=== PATIENT | male | born 1965 | race Caucasian/White ===

== ENCOUNTER 2017-03-07 08:28 | Emergency (ER) | payer MEDICARE, MEDICAID ==
[~2017-03-07] VITALS: Ht 182.9 cm; Wt 79.7 kg
[2017-03-07] MEDS ORDERED: LIDOcaine 1.5% w/epinephrine 1:200,000 5ml ampul IJ ONE (08:45)
[2017-03-07] MEDS ORDERED: TETanus/Pertussis (Acell)/Diphther VAC/PF (Tdap-Adult) 0.5ml syringe IM ONE (08:45)
[2017-03-07] MEDS ORDERED: CEPH500C5 PO (09:58)
[2017-03-07 10:14] VITALS: BP 163/90
== END 2017-03-07 10:16 | disposition home or self-care (01) ==
LOC: ER 08:29
DX: S01.81XA Laceration without foreign body of other part of head, initial encounter (principal); G40.909 Epilepsy, unspecified, not intractable, without status epilepticus; Z88.8 Allergy status to other drugs, medicaments and biological substances; X58.XXXA Exposure to other specified factors, initial encounter; Y93.89 Activity, other specified; Y92.89 Other specified places as the place of occurrence of the external cause; Y99.8 Other external cause status
CPT/HCPCS: 12013; 90471; 90715; 99284; A6449; J3490

== ENCOUNTER 2020-10-03 19:00 | Emergency (ER) | payer MEDICARE, MEDICAID ==
[~2020-10-03] VITALS: Ht 180.3 cm; Wt 80.0 kg
[2020-10-03 19:11] VITALS: BP 157/93
[2020-10-03] MEDS ORDERED: LIDOcaine 1% W/epiNEPHrine 1:200,000 10ml vial IJ ONE (19:25)
[2020-10-03] MEDS ORDERED: LIDOcaine 1% w/epiNEPHrine 1:200,000 30ml vial SQ ONE (19:45)
== END 2020-10-03 20:24 | disposition home or self-care (01) ==
LOC: ER 19:01
DX: S01.81XA Laceration without foreign body of other part of head, initial encounter (principal); Z86.69 Personal history of other diseases of the nervous system and sense organs; Z88.8 Allergy status to other drugs, medicaments and biological substances; W01.0XXA Fall on same level from slipping, tripping and stumbling without subsequent striking against object, initial encounter; Y93.89 Activity, other specified; Y92.89 Other specified places as the place of occurrence of the external cause; Y99.8 Other external cause status
CPT/HCPCS: 12011; 99282

== ENCOUNTER 2021-08-04 15:08 | Emergency (ER) | payer MEDICARE, MEDICAID ==
[~2021-08-04] VITALS: Ht 180.3 cm; Wt 72.7 kg
[2021-08-04 15:27] VITALS: BP 133/68
== END 2021-08-04 19:10 | disposition home or self-care (01) ==
LOC: ER 15:08
DX: S01.81XA Laceration without foreign body of other part of head, initial encounter (principal); Z86.69 Personal history of other diseases of the nervous system and sense organs; Z88.8 Allergy status to other drugs, medicaments and biological substances; W19.XXXA Unspecified fall, initial encounter; Y93.89 Activity, other specified; Y92.89 Other specified places as the place of occurrence of the external cause; Y99.8 Other external cause status
CPT/HCPCS: 12013; 70450; 99284

== ENCOUNTER 2022-02-20 13:26 | Emergency (ER) | payer MEDICARE, MEDICAID ==
[~2022-02-20] VITALS: Ht 177.8 cm; Wt 72.0 kg
[2022-02-20 13:27] VITALS: BP 169/94
[2022-02-20] MEDS ORDERED: magnesium citrate 296ml oral solution PO ONE (14:45)
[2022-02-20] MEDS ORDERED: scopolamine 1.5mg patch.TD72 (72-hour patch) TD ONE (14:45)
[2022-02-20 15:19] LABS: CLARITY,URINE CLEAR (Clear); COLOR,URINE YELLOW (Yellow); GLUCOSE, URINE NEGATIVE (Neg); KETONES,URINE NEGATIVE (Neg); LEUKOCYTE ESTERASE ,URINE NEGATIVE (Neg); NITRITES, URINE NEGATIVE (Neg); OCCULT BLOOD,URINE NEGATIVE (Neg); PROTEIN,URINE NEGATIVE (Neg); UROBILINOGEN,URINE 0.2 E.U/dL (0.2-1.0)
[2022-02-20 15:20] LABS: UA COLLECTION TYPE VOIDED
== END 2022-02-20 15:47 | disposition home or self-care (01) ==
LOC: ER 13:26
DX: N23 Unspecified renal colic (principal); Z88.8 Allergy status to other drugs, medicaments and biological substances
CPT/HCPCS: 81003; 99284

== ENCOUNTER 2022-04-03 21:41 | Emergency (ER) | payer MEDICARE, MEDICAID ==
[~2022-04-03] VITALS: Ht 180.3 cm; Wt 72.7 kg
[2022-04-03 22:27] VITALS: BP 132/93
[2022-04-04] MEDS ORDERED: naproxen 500mg tablet PO ONE (01:00)
== END 2022-04-04 01:20 | disposition home or self-care (01) ==
LOC: ER 21:42
DX: S50.02XA Contusion of left elbow, initial encounter (principal); Z86.69 Personal history of other diseases of the nervous system and sense organs; Z88.8 Allergy status to other drugs, medicaments and biological substances; W06.XXXA Fall from bed, initial encounter; Y93.89 Activity, other specified; Y92.89 Other specified places as the place of occurrence of the external cause; Y99.8 Other external cause status
CPT/HCPCS: 99282